=== PATIENT | female | born 1995 | race Hispanic/Latino ===

== ENCOUNTER 2017-11-18 16:26 | Observation (INO) | payer MEDICAID ==
[~2017-11-18] VITALS: Ht 167.6 cm; Wt 65.8 kg
[2017-11-18 17:06] LABS: BILIRUBIN,URINE Negative (NEGATIVE); COLOR,URINE Yellow (YELLOW); GLUCOSE, URINE (UA) Negative (NEGATIVE); KETONES,URINE Negative (NEGATIVE); LEUKOCYTE ESTERASE ,URINE Small (NEGATIVE); NITRATE,URINE Negative (NEGATIVE); OCCULT BLOOD,URINE Negative (NEGATIVE); PROTEIN,URINE Negative (NEGATIVE)
[2017-11-18 17:19] LABS: APPEARANCE,URINE SLIGHTLY CLOUDY (CLEAR)
[2017-11-18 17:20] LABS: RBC,URINE 0-1 /HPF (0-1)
[2017-11-18 17:21] LABS: AMORPHOUS SEDIMENT,UR Few /LPF (None Seen); BACTERIA,URINE Few /HPF (None Seen); SQUAMOUS EPITHELIAL CELL,UR Rare /LPF (0-2)
[2017-11-18] MEDS ORDERED: TERBUTALINE SULFATE VIAL 1MG/ML SQ PRN (17:45)
[2017-11-18] MEDS ORDERED: LACTATED RINGERS 1000ML IV SCH (17:45)
[2017-11-18] MEDS ORDERED: TERBUTALINE SULFATE VIAL 1MG/ML SQ ONE (17:46)
== END 2017-11-18 20:30 | disposition home or self-care (01) ==
LOC: EDH 16:26 → LDH 16:40
PROVIDERS: ADMIT Obstetrics & Gynecology; ATTEND Obstetrics & Gynecology
DX: O26.893 Other specified pregnancy related conditions, third trimester (principal); R10.30 Lower abdominal pain, unspecified; M54.40 Lumbago with sciatica, unspecified side; Z3A.31 31 weeks gestation of pregnancy
CPT/HCPCS: 81001; 96372; 99285; G0378 ×4; J3105; 96360; 96361

== ENCOUNTER 2018-06-26 17:40 | Emergency (ER) | payer MEDICAID, OTHER | END 2018-06-26 18:33 | disposition home or self-care (01) | LOC: EDH 17:40 | DX: G43.909 Migraine, unspecified, not intractable, without status migrainosus (principal); Z88.0 Allergy status to penicillin | CPT/HCPCS: 99281 ==